=== PATIENT | male | born 1965 | race Caucasian/White ===

== ENCOUNTER 2018-01-28 21:42 | Emergency (ER) | payer MEDICARE, OTHER, MEDICAID | END 2018-01-29 02:48 | disposition home or self-care (01) | LOC: FTE 01-29 02:48 | DX: S06.0X0A Concussion without loss of consciousness, initial encounter (principal); S02.2XXA Fracture of nasal bones, initial encounter for closed fracture; I10 Essential (primary) hypertension; W22.8XXA Striking against or struck by other objects, initial encounter; Y92.9 Unspecified place or not applicable; Z96.642 Presence of left artificial hip joint | CPT/HCPCS: 70450; 70486; 72040; 99284-25 ==